=== PATIENT | female | born 1985 | race African-American/Black ===

== ENCOUNTER 2016-11-23 03:03 | Emergency (ER) | payer SELFPAY ==
[~2016-11-23] VITALS: Ht 175.3 cm; Wt 65.8 kg
[2016-11-23 03:03] VITALS: BP 111/75
--- NOTE | 2016-11-23 04:12 | Emergency Room Report ---
History of Present Illness General Chief Complaint: Alcohol Intoxication Source: EMS Present Illness HPI Is a 31-year-old female brought in by EMS for alcohol intoxication. She was parked in front of an arm and complex in her car. Was not running. There is no trauma. She appeared to be very intoxicated. No trauma. Unable to give history because of her intoxication. Allergies: Coded Allergies: No Known Allergies (Unverified , 11/23/16) Patient History Past Medical History: see triage record, old chart reviewed Past Surgical History: none Pertinent Family History: none Social History: Denies: smoking Last Menstrual Period: RIGHT NOW Now: No Immunizations: other Reviewed Nursing Documentation: PMH: Agreed, PSxH: Agreed Nursing Documentation-PMH Past Medical History: No Stated History Review of Systems All Other Systems: limited - Secondary to intoxication Physical Exam Vital Signs Date Time Temp Pulse Resp B/P Pulse Ox O2 Delivery O2 Flow Rate FiO2 11/23/16 02:56 98.1 77 18 111/75 100 Room Air vitals normal Sp02 EP Interpretation: reviewed, normal General Appearance: well appearing, no apparent distress, other - Intoxicated Head: normocephalic, atraumatic Eyes: bilateral eye EOMI, bilateral eye PERRL ENT: normal pharynx Neck: full range of motion, supple, no meningismus Respiratory: chest non-tender, lungs clear, normal breath sounds Cardiovascular #1: regular rate, rhythm, no murmur Gastrointestinal: normal bowel sounds, non tender, no mass, no organomegaly, no bruit, non-distended Musculoskeletal: back normal Neurologic: grossly normal - Withdraw to painful similar in all 4 extremities Psychiatric: mood/affect normal Skin: warm/dry Medical Decision Making Diagnostic Impression: Primary Impression: Acute alcoholic intoxication Qualified Codes: F10.120 - Alcohol abuse with intoxication, uncomplicated ER Course patient with alcohol intoxication. There is no trauma. C this off. We'll discharge and reassess in the morning. Once clinically sober, we'll discharge home. Last Vital Signs Date Time Temp Pulse Resp B/P Pulse Ox O2 Delivery O2 Flow Rate FiO2 11/23/16 03:03 98.1 88 18 111/75 100 Room Air Status: improved Disposition: HOME, SELF-CARE Condition: Stable Patient Instructions: Alcohol Intoxication, [id number] Additional Instructions: Followup with your DrDonaldo in 7 days. Abstain from drinking to excess. Return if symptom worsen. WES FARAH M.D. Nov 23, 2016 04:12
[2016-11-23 06:03] VITALS: BP 96/61
[2016-11-23 06:04] VITALS: BP 96/61
== END 2016-11-23 06:09 | disposition home or self-care (01) ==
LOC: EDBD 03:03 → EMR 04:53
DX: F10.120 Alcohol abuse with intoxication, uncomplicated (principal)
CPT/HCPCS: 99284